=== PATIENT | female | born 1955 | race Caucasian/White ===

== ENCOUNTER 2019-05-18 10:21 | Inpatient (IN) ==
[2019-05-18] MEDS ORDERED: *HR* Midazolam HCl 2 MG/2 ML VIAL ONE (10:28)
[2019-05-18] MEDS ORDERED: *HR* FentaNYL (PF) 100 MCG/2 ML VIAL ONE (10:28)
[2019-05-18] MEDS ORDERED: *HR* Propofol 200 MG/20 ML VIAL IVP ONE (10:29)
[2019-05-18] MEDS ORDERED: CeFAZolin Syr 2,000MG/20 ML 2,000 MG/20 ML SYRINGE IVPB ONE (10:37)
[2019-05-18] MEDS ORDERED: Ringers Solution, Lactated 1,000 ML IVC SCH ×2 (10:45→15:11)
[2019-05-18] MEDS ORDERED: Lidocaine -MPF 2% 2 ML VIAL ONE (10:57)
[2019-05-18] MEDS ORDERED: Dexamethasone 4 MG/ML VIAL ONE ×2 (11:06→12:57)
[2019-05-18] MEDS ORDERED: Ondansetron 4 MG/2 ML VIAL ONE ×2 (11:06→12:57)
[2019-05-18] MEDS ORDERED: Ketorolac 30 MG/ML VIAL ONE (11:08)
[2019-05-18] MEDS ORDERED: Ondansetron 4 MG/2 ML VIAL IVP ONE (11:18)
[2019-05-18] MEDS ORDERED: *HR* OxyCODONE Immed Rel 5 MG TABLET PO PRN ×2 (11:18→15:11)
[2019-05-18] MEDS ORDERED: *HR* HYDROmorphone (PF) 1 MG/ML SYRINGE IVP PRN (11:18)
[2019-05-18] MEDS ORDERED: Ethanol\\Acetic Acid\\Na Ace\\Ben 1,000 ML IRRIG.SOLN IR ONE (11:48)
[2019-05-18] MEDS ORDERED: ROPIVACAINE/PF/NS 0.25% 1 EACH SYRINGE INTRAART ONE (11:55)
[2019-05-18] MEDS ORDERED: Ropivacaine/PF 0.5% 30 ML VIAL ONE (11:55)
[2019-05-18] MEDS ORDERED: Acetaminophen IV 1,000 MG/100 ML INFUS..BTL ONE (12:47)
[2019-05-18] MEDS ORDERED: *HR* PHENYLEPHRINE 1,000 MCG/10 ML SYRINGE IVP ONE (13:11)
[2019-05-18 14:37] LABS: Hematocrit 43.3 % (35.3-44.9); Hemoglobin 14.9 g/dL (11.5-15.4)
[2019-05-18] MEDS ORDERED: Ondansetron 4 MG/2 ML VIAL IVP PRN (15:11)
[2019-05-18] MEDS ORDERED: *HR* OxyCODONE/APAP 5/325 TABLET PO PRN (15:11)
[2019-05-18] MEDS ORDERED: Temazepam 15 MG CAPSULE PO PRN (15:11)
[2019-05-18] MEDS ORDERED: Sennosides 8.6 MG TABLET PO PRN (15:11)
[2019-05-18] MEDS ORDERED: MOM Conc 10 ML UD.LIQ PO PRN (15:11)
[2019-05-18] MEDS ORDERED: Naloxone 0.4 MG/ML INJ IVP PRN (15:11)
[2019-05-18 17:28] VITALS: BP 124/77
[2019-05-18] MEDS ORDERED: *HR* Enoxaparin 30 MG/0.3 ML SYRINGE SQ SCH ×2 (18:00)
== END 2019-05-18 18:33 | disposition home or self-care (01) | DRG 483 ==
LOC: SAMDAY 10:21 → 3NENU 15:14
PROVIDERS: ADMIT Orthopaedic Surgery; ATTEND Orthopaedic Surgery